=== PATIENT | male | born 1940 | race Caucasian/White ===

== ENCOUNTER 2016-10-27 07:46 | Inpatient (IN) | payer MEDICARE ==
[~2016-10-27] VITALS: Ht 182.9 cm; Wt 68.2 kg
[~2016-10-27 07:46] MED LIST: ALBU8.5H5 INH; BUPIVACAINE/PF 0.5% ONE; EPINEPHRINE 1 MG/ML, 1ML ONE; GABA100C PO; NEOSPORIN OINT, 15GM ONE; OMEP20CA9 PO; OXYC-229 PO; THROMBIN 5,000 UNIT VIAL TP ONE
[2016-10-27 09:23] VITALS: BP 125/73
[2016-10-27] MEDS ORDERED: LACTATED RINGERS 1,000 ML IV SCH (09:46)
[2016-10-27] MEDS ORDERED: ALBUTEROL SULFATE 2.5 MG/3 ML NPPB PRN ×2 (10:30→16:30)
[2016-10-27] MEDS ORDERED: ONDANSETRON 2MG/ML, 2ML ONE (10:46)
[2016-10-27] MEDS ORDERED: ROCURONIUM 10 MG/ML ONE (10:46)
[2016-10-27] MEDS ORDERED: DEXAMETHASONE 4 MG/ML, 1ML ONE (10:46)
[2016-10-27] MEDS ORDERED: SUCCINYLCHOLINE 20 MG/ML, 10ML ONE (10:46)
[2016-10-27] MEDS ORDERED: PROPOFOL 10 MG/ML, 50ML ONE (10:46)
[2016-10-27] MEDS ORDERED: CEFAZOLIN 1,000 MG ONE (10:46)
[2016-10-27] MEDS: D5%-0.9% NACL+KCL 20MEQ 1,000 ML IV SCH ×2 (11:00→20:33)
[2016-10-27] MEDS ORDERED: SENNA/DOCUSATE TABLET PO PRN (11:00)
[2016-10-27] MEDS ORDERED: BISACODYL 10 MG SUPP PR PRN (11:00)
[2016-10-27] MEDS ORDERED: METHOCARBAMOL 750 MG TABLET PO PRN (11:00)
[2016-10-27] MEDS ORDERED: PHARMACY MAY ADJ FOR RENAL FX MC PRN (11:00)
[2016-10-27] MEDS ORDERED: PROMETHAZINE 25 MG/ML, 1ML IM PRN (11:00)
[2016-10-27] MEDS: GABAPENTIN 400 MG CAPSULE PO SCH ×3 (11:00→20:33)
[2016-10-27] MEDS ORDERED: MAGNESIUM HYDROXIDE 8%, 30ML UDC PO PRN (11:00)
[2016-10-27] MEDS ORDERED: DIPHENHYDRAMINE 50 MG/ML, 1ML IVPush PRN (11:00)
[2016-10-27] MEDS ORDERED: ACETAMINOPHEN 325 MG TABLET PO PRN (13:30)
[2016-10-27] MEDS ORDERED: METOCLOPRAMIDE 5 MG/ML, 2ML IV PRN (13:30)
[2016-10-27] MEDS ORDERED: hydrALAzine 20 MG/ML, 1ML IV PRN (13:30)
[2016-10-27] MEDS ORDERED: OXYcodone 5 MG/5 ML ORAL.SOL UDC PO PRN (13:30)
[2016-10-27] MEDS ORDERED: LABETALOL 5MG/ML, 20ML IV PRN (13:30)
[2016-10-27] MEDS ORDERED: ONDANSETRON 2MG/ML, 2ML IVPush PRN (13:30)
[2016-10-27] MEDS: HYDROmorphone 1 MG/ML, 1ML IV PRN ×5 (13:32→14:32)
[2016-10-27] MEDS ORDERED: HYDROmorphone 2 MG/ML, 1ML ONE (13:37)
[2016-10-27] MEDS ORDERED: ACETAMINOPHEN 650 MG/20.3 ML UDC ONE (13:37)
[2016-10-27] MEDS ORDERED: METHOCARBAMOL 750 MG TABLET ONE (13:37)
[2016-10-27] MEDS ORDERED: OXYcodone 5 MG/5 ML ORAL.SOL UDC ONE (13:38)
[2016-10-27] MEDS ORDERED: FENTANYL PF 100 MCG/2ML ONE (14:00)
[2016-10-27] MEDS: FENTANYL PF 100 MCG/2ML IV PRN ×2 (14:02→14:09)
[2016-10-27] MEDS ORDERED: HYDROmorphone 1 MG/ML, 1ML ONE (14:32)
[2016-10-27] MEDS: morphine SULFATE 10 MG/ML, 1ML IVPush PRN ×3 (15:23→18:37)
[2016-10-27] MEDS: OXYcodone/APAP 5/325MG TABLET PO PRN ×2 (17:28→21:20)
[2016-10-27] MEDS: ONDANSETRON 2MG/ML, 2ML IVPush PRN (18:37)
[2016-10-27 20:10] VITALS: BP 107/67
[2016-10-27] MEDS: CEFAZOLIN PMX 1GM/50ML 50 ML IVPB SCH (20:33)
[2016-10-27 23:23] VITALS: BP 102/60
[2016-10-28] MEDS: ONDANSETRON 2MG/ML, 2ML IVPush PRN (01:23)
[2016-10-28] MEDS: OXYcodone/APAP 5/325MG TABLET PO PRN ×3 (01:23→09:22)
[2016-10-28 02:56] VITALS: BP 104/64
[2016-10-28] MEDS: GABAPENTIN 400 MG CAPSULE PO SCH (05:09)
[2016-10-28] MEDS: CEFAZOLIN PMX 1GM/50ML 50 ML IVPB SCH (05:09)
[2016-10-28 07:15] VITALS: BP 95/57
[2016-10-28] MEDS ORDERED: OMEPRAZOLE 20 MG CAPSULE.DR PO SCH (09:00)
[2016-10-28] MEDS: D5%-0.9% NACL+KCL 20MEQ 1,000 ML IV SCH (10:00)
== END 2016-10-28 10:40 | disposition home or self-care (01) | DRG 460 ==
LOC: ORIP 07:46 → 4NOR 14:52 → DCLOUNGE 10-28 10:17
PROVIDERS: ADMIT Orthopaedic Surgery Orthopaedic Surgery of the Spine; ATTEND Orthopaedic Surgery Orthopaedic Surgery of the Spine
PROC: 0SB23ZZ Excision of Lumbar Vertebral Disc, Percutaneous Approach (ICD-10-PCS; 2016-10-27)
PROC: 0SG13A0 Fusion of 2 or more Lumbar Vertebral Joints with Interbody Fusion Device, Anterior Approach, Anterior Column, Percutaneous Approach (ICD-10-PCS; principal; 2016-10-27 10:00)
DX: M51.36 Other intervertebral disc degeneration, lumbar region (principal); Z98.1 Arthrodesis status; Z85.9 Personal history of malignant neoplasm, unspecified
CPT/HCPCS: 36415; 72100; 85025; C1713; J0171; J0690; J1100; J1170; J2250; J2405; J2704; J3010; J3490; C1760; C1762; J0330; J2270; J3480; J7120

== ENCOUNTER 2016-12-20 12:45 | Inpatient (IN) | payer MEDICARE ==
[~2016-12-20] VITALS: Ht 182.9 cm; Wt 66.3 kg
[~2016-12-20 12:45] MED LIST changes: +BACITRACIN OINT 500U/GM, 15 GM ONE; -NEOSPORIN OINT, 15GM ONE; -OXYC-229 PO; +OXYC-307 PO
[2016-12-20] MEDS ORDERED: LACTATED RINGERS 1,000 ML IV SCH (13:30)
[2016-12-20 13:34] VITALS: BP 142/88
[2016-12-20] MEDS ORDERED: FENTANYL PF 100 MCG/2ML ONE ×7 (15:11→19:40)
[2016-12-20] MEDS ORDERED: MIDAZOLAM 1 MG/ML, 2ML ONE (15:11)
[2016-12-20] MEDS ORDERED: KETAMINE 10 MG/ML, 20ML ONE (16:16)
[2016-12-20] MEDS ORDERED: DEXAMETHASONE 4 MG/ML, 1ML ONE (16:23)
[2016-12-20] MEDS ORDERED: PROPOFOL 10 MG/ML, 20ML ONE (16:23)
[2016-12-20] MEDS ORDERED: ONDANSETRON 2MG/ML, 2ML ONE (16:23)
[2016-12-20] MEDS ORDERED: PROPOFOL 10 MG/ML, 50ML ONE (16:23)
[2016-12-20] MEDS ORDERED: EPHEDRINE 50 MG/ML, 1ML ONE (16:23)
[2016-12-20] MEDS ORDERED: CEFAZOLIN 1,000 MG ONE (16:23)
[2016-12-20] MEDS ORDERED: SENNA/DOCUSATE TABLET PO PRN (16:30)
[2016-12-20] MEDS ORDERED: PHARMACY MAY ADJ FOR RENAL FX MC PRN (16:30)
[2016-12-20] MEDS ORDERED: morphine SULFATE 10 MG/ML, 1ML IVPush PRN (16:30)
[2016-12-20] MEDS ORDERED: ONDANSETRON 2MG/ML, 2ML IVPush PRN ×2 (16:30→18:30)
[2016-12-20] MEDS ORDERED: DIPHENHYDRAMINE 50 MG/ML, 1ML IVPush PRN (16:30)
[2016-12-20] MEDS ORDERED: BISACODYL 10 MG SUPP PR PRN (16:30)
[2016-12-20] MEDS ORDERED: MAGNESIUM HYDROXIDE 8%, 30ML UDC PO PRN (16:30)
[2016-12-20] MEDS ORDERED: PROMETHAZINE 25 MG/ML, 1ML IM PRN (16:30)
[2016-12-20] MEDS ORDERED: METHOCARBAMOL 750 MG TABLET PO PRN (16:30)
[2016-12-20] MEDS ORDERED: ALBUTEROL SULFATE 2.5 MG/3 ML NPPB PRN (18:30)
[2016-12-20] MEDS ORDERED: LABETALOL 5MG/ML, 20ML IV PRN (18:30)
[2016-12-20] MEDS ORDERED: PROMETHAZINE 25 MG/ML, 1ML IV PRN (18:30)
[2016-12-20] MEDS ORDERED: OXYcodone 5 MG/5 ML ORAL.SOL UDC PO PRN (18:30)
[2016-12-20] MEDS ORDERED: ACETAMINOPHEN 325 MG TABLET PO PRN (18:30)
[2016-12-20] MEDS ORDERED: hydrALAzine 20 MG/ML, 1ML IV PRN (18:30)
[2016-12-20] MEDS ORDERED: ALBUTEROL/IPRATROPIUM 2.5MG/0.5MG, 3 ML NPPB PRN (18:30)
[2016-12-20] MEDS ORDERED: HYDROmorphone 1 MG/ML, 1ML ONE (18:39)
[2016-12-20] MEDS ORDERED: OXYcodone 5 MG/5 ML ORAL.SOL UDC ONE (19:03)
[2016-12-20] MEDS ORDERED: HYDROmorphone 2 MG/ML, 1ML ONE ×2 (19:03→19:40)
[2016-12-20] MEDS ORDERED: ACETAMINOPHEN 650 MG/20.3 ML UDC ONE (19:03)
[2016-12-20] MEDS: FENTANYL PF 100 MCG/2ML IV PRN ×4 (19:09→19:50)
[2016-12-20] MEDS: HYDROmorphone 1 MG/ML, 1ML IV PRN ×8 (19:09→20:16)
[2016-12-20] MEDS ORDERED: ALBUTEROL SULFATE 2.5 MG/3 ML HHN PRN (21:00)
[2016-12-20] MEDS: D5%-0.9% NACL+KCL 20MEQ 1,000 ML IV SCH (21:55)
[2016-12-20] MEDS: GABAPENTIN 300 MG CAPSULE PO SCH (21:55)
[2016-12-20] MEDS: OXYcodone/APAP 5/325MG TABLET PO PRN (23:24)
[2016-12-20 23:50] VITALS: BP 107/50
[2016-12-21] MEDS: CEFAZOLIN PMX 1GM/50ML 50 ML IVPB SCH ×2 (00:49→08:18)
[2016-12-21] MEDS: morphine SULFATE 10 MG/ML, 1ML IVPush PRN ×2 (02:09→02:28)
[2016-12-21] MEDS: OXYcodone/APAP 5/325MG TABLET PO PRN ×5 (03:32→22:46)
[2016-12-21 04:16] VITALS: BP 98/57
[2016-12-21 05:12] LABS: HEMATOCRIT 37.4 % (39.2-51.8)
[2016-12-21] MEDS ORDERED: CYCLOBENZAPRINE 10 MG TABLET PO PRN (08:00)
[2016-12-21] MEDS: D5%-0.9% NACL+KCL 20MEQ 1,000 ML IV SCH ×3 (08:18→20:40)
[2016-12-21] MEDS: OMEPRAZOLE 20 MG CAPSULE.DR PO SCH (08:19)
[2016-12-21] MEDS: GABAPENTIN 300 MG CAPSULE PO SCH ×3 (08:19→20:40)
[2016-12-21 08:41] VITALS: BP 93/50
[2016-12-21] MEDS: TAMSULOSIN 0.4 MG CAP.ER.24H PO SCH (12:11)
[2016-12-21 14:12] VITALS: BP 98/57
[2016-12-21 20:28] VITALS: BP 96/55
[2016-12-22 00:37] VITALS: BP 101/60
[2016-12-22] MEDS: OXYcodone/APAP 5/325MG TABLET PO PRN ×3 (02:37→11:04)
[2016-12-22 05:18] LABS: HEMOGLOBIN 12.5 g/dL (13.7-18.0); WHITE BLOOD COUNT 7.5 x10^3/uL (3.4-10)
[2016-12-22 07:54] VITALS: BP 110/59
[2016-12-22] MEDS: TAMSULOSIN 0.4 MG CAP.ER.24H PO SCH (08:43)
[2016-12-22] MEDS: GABAPENTIN 300 MG CAPSULE PO SCH (08:43)
[2016-12-22] MEDS: OMEPRAZOLE 20 MG CAPSULE.DR PO SCH (08:43)
[2016-12-22] MEDS ORDERED: MORP-52 PO (10:35)
[2016-12-22] MEDS ORDERED: OXYC-302 PO (10:35)
== END 2016-12-22 12:12 | disposition home or self-care (01) | DRG 472 ==
LOC: ORIP 12:45 → EDSTATUS 15:30 → 4NOR 20:35 → DCLOUNGE 12-22 11:47
PROVIDERS: ADMIT Orthopaedic Surgery Orthopaedic Surgery of the Spine; ATTEND Orthopaedic Surgery Orthopaedic Surgery of the Spine
PROC: 0RG2071 Fusion of 2 or more Cervical Vertebral Joints with Autologous Tissue Substitute, Posterior Approach, Posterior Column, Open Approach (ICD-10-PCS; 2016-12-20)
PROC: 4A11X4G Monitoring of Peripheral Nervous Electrical Activity, Intraoperative, External Approach (ICD-10-PCS; 2016-12-20)
PROC: 00QT0ZZ Repair Spinal Meninges, Open Approach (ICD-10-PCS; principal; 2016-12-21)
DX: M48.02 Spinal stenosis, cervical region (principal); G95.89 Other specified diseases of spinal cord; J43.9 Emphysema, unspecified; Z87.891 Personal history of nicotine dependence
CPT/HCPCS: 36415; 72040; 85025; 86850; 86900; 95938; 95941; C1713; J0171; J0690; J1100; J1170; J2250; J2405; J2704; J3010; J3490; C1762; C1781; J2270; J3480; J7120